=== PATIENT | female | born 1955 | race Two or more races ===

== ENCOUNTER 2022-08-26 10:36 | Emergency (ER) | payer MEDICARE, OTHER ==
[2022-08-26 10:52] VITALS: BP 159/83; PULSE 100; RESP 16; TEMP 97.7; BMI 31.1
[2022-08-26 12:38] LABS: THROAT:GRP A STREP NOT DETECTED (NOTDETECTED)
[2022-08-26] MEDS ORDERED: ACETAMINOPHEN 325 MG TABLET (FP) ONE (13:03)
[2022-08-26] MEDS ORDERED: ACETAMINOPHEN 325 MG TABLET (FP) PO ONE (13:03)
[2022-08-26 13:54] LABS: BASO % 0.9 % (0-2.0); EOS % 2.2 % (0-4.5); HEMATOCRIT 39.7 % (32.4-45.2); HEMOGLOBIN 13.4 GM/dL (10.7-15.3); LYMPH % 33.1 % (8-40); MCH 29.1 pg (25.7-33.7); MCHC 33.7 g/dl (32.0-36.0); MEAN CELL VOLUME 86.4 fl (80-96); MEAN PLT VOLUME 9.1 fl (7.5-11.1); NEUT % 55.8 % (42.8-82.8); PLATELET COUNT 261 10^3/uL (134-434); RBC 4.59 M/mm3 (3.60-5.2); WHITE BLOOD COUNT 5.3 K/mm3 (4.0-10.0)
[2022-08-26 14:20] LABS: CALCIUM 9.3 mg/dL (8.5-10.1)
[2022-08-26 14:24] LABS: CREATININE 0.6 mg/dL (0.55-1.3)
== END 2022-08-26 14:56 | disposition home or self-care (01) ==
LOC: JERFT 10:36
DX: R07.0 Pain in throat (principal)
CPT/HCPCS: 0241U-QW; 36415; 80048; 84443; 85025; 87651; 99283-25